=== PATIENT | male | born 1970 ===

== ENCOUNTER 2022-12-17 11:59 | Outpatient (CLI) | payer OTHER | END 2022-12-17 12:09 | disposition home or self-care (01) | LOC: TOM 11:59 | DX: K43.9 Ventral hernia without obstruction or gangrene (principal) ==

== ENCOUNTER 2023-01-05 05:45 | Day surgery (SDC) | payer OTHER ==
[~2023-01-05] VITALS: Ht 172.7 cm; Wt 88.5 kg
[~2023-01-05 05:45] MED LIST: ACID REDUCER20 M1 PO; HYZAAR 100-12.1 EACH PO; PAXIL20 MG PO; TENORMIN50 M1 PO; WELLBUTRIN XL150 M1 PO
[2023-01-05] MEDS ORDERED: NEURONTIN300 MG PO (09:42)
[2023-01-05] MEDS ORDERED: POLY119PG PO (09:42)
[2023-01-05] MEDS ORDERED: PERCOCET 5-3251 EACH PO (09:42)
== END 2023-01-05 12:10 | disposition home or self-care (01) ==
LOC: CIR.AMB 05:45
PROVIDERS: ATTEND Surgery
DX: K43.6 Other and unspecified ventral hernia with obstruction, without gangrene (principal); Z88.6 Allergy status to analgesic agent; Z20.822 Contact with and (suspected) exposure to COVID-19
CPT/HCPCS: 49594; C1781